=== PATIENT | male | born 1945 | race African-American/Black ===

== ENCOUNTER 2018-06-29 22:33 | Inpatient (IN) ==
[2018-06-29] MEDS ORDERED: NITROGLYCERIN 2% OINT 1 INCH/GM PACK TOP STA (22:37)
[2018-06-29] MEDS ORDERED: MORPHINE 4 MG/1 ML VIAL IV STA ×2 (22:39→22:46)
[2018-06-29] MEDS ORDERED: NITROGLYCERIN DRIP 50 MG/250 ML BOTTLE IV ONE (22:46)
[2018-06-29] MEDS ORDERED: ONDANSETRON 4 MG/2 ML VIAL IV STA (22:46)
[2018-06-29] MEDS ORDERED: NITROGLYCERIN DRIP 50 MG/250 ML BOTTLE IV PRN (22:47)
[2018-06-29] MEDS ORDERED: TICAGRELOR 90 MG TABLET PO STA (22:47)
[2018-06-29] MEDS ORDERED: ASPIRIN 325 MG TABLET PO STA (22:47)
[2018-06-29] MEDS ORDERED: SODIUM BICARBONATE 2.4 MEQ/5 ML VIAL ONE (22:48)
[2018-06-29] MEDS ORDERED: LIDOCAINE 1% 20 ML VIAL ONE (22:48)
[2018-06-29] MEDS ORDERED: HEPARIN/NACL 0.9% 2 UNITS/ML 1,000 ML IV ONE (22:48)
[2018-06-29] MEDS ORDERED: fentaNYL 100 MCG/2 ML VIAL ONE (22:53)
[2018-06-29] MEDS ORDERED: MIDAZOLAM 2 MG/2 ML VIAL ONE (22:53)
[2018-06-29 23:01] LABS: Basophils % 0.6 % (0.0-0.8); Eosinophils # 0.1 10*3/uL (0.0-0.87); Eosinophils % 1.6 % (0.00-10.9); Hematocrit 37.9 VOL% (42.0-52.0); Immature Granulocytes % 0.3 %; Immature Granulocytes Absolute 0.02 #; Lymphocytes # 1.2 10*3/uL (1.4-4.0); Lymphocytes % 19.1 % (21.2-54.2); Mean Corpuscular HGB Conc 31.7 GM/DL (32-36); Mean Corpuscular Hemoglobin 30 PG (27-34); Mean Corpuscular Volume 94.8 FL (87-102); Monocytes # 0.3 10*3/uL (0.11-0.8); Monocytes % 5.4 % (1.7-12.7); Neutrophils # 4.6 10*3/uL (1.4-7.4); Platelet Count 226 T/CUMM (130-400); Red Cell Distribution Width 13.8 % (9.3-17.3); White Blood Count 6.3 T/CUMM (4-12)
[2018-06-29] MEDS ORDERED: HEPARIN 5,000 UNIT/1 ML VIAL ONE (23:01)
[2018-06-29] MEDS ORDERED: EPTIFIBATIDE 20,000 MCG/10 ML VIAL ONE (23:04)
[2018-06-29 23:24] LABS: PT Patient Result 11.3 SECS; Partial Thromboplastin Time 25.8 SECS (0-40)
[2018-06-29 23:27] LABS: Alanine Aminotransferase 26 U/L (16-61); Albumin 3.3 G/DL (3.4-5.0); Alkaline Phosphatase 110 U/L (45-117); Aspartate Amino Transferase 20 U/L (0-37); Bilirubin,Total < 0.39 MG/DL (0.2-1.0); Blood Urea Nitrogen 15 MG/DL (7-18); Calcium 8.4 MG/DL (8.5-10.1); Glucose 209 MG/DL (74-106); Potassium 3.4 MMOL/L (3.5-5.1); Sodium 143 MMOL/L (136-145); Total Protein 6.1 G/DL (6.4-8.3)
[2018-06-29] MEDS ORDERED: PHENYLEPHRINE 50 MG/5 ML VIAL ONE (23:33)
[2018-06-29] MEDS: PHENYLEPHRINE DRIP 40 MG/250 ML PREMIX IV PRN (23:41)
[2018-06-29] MEDS ORDERED: EPTIFIBATIDE 75 MG/100 ML BOTTLE IV SCH (23:46)
[2018-06-30] MEDS ORDERED: ACETAMINOPHEN 325 MG TABLET PO PRN (00:22)
[2018-06-30] MEDS: PHENYLEPHRINE DRIP 40 MG/250 ML PREMIX IV PRN ×4 (04:50→21:16)
[2018-06-30] MEDS ORDERED: NITROGLYCERIN 2% OINT 1 INCH/GM PACK TOP ONE (05:07)
[2018-06-30] MEDS ORDERED: ASPIRIN 325 MG TABLET ONE (05:07)
[2018-06-30] MEDS ORDERED: TICAGRELOR 90 MG TABLET ONE (05:07)
[2018-06-30] MEDS ORDERED: MORPHINE 4 MG/1 ML VIAL ONE (05:07)
[2018-06-30 07:15] LABS: Basophils % 0.3 % (0.0-0.8); Eosinophils % 0.1 % (0.00-10.9); Hematocrit 44.9 VOL% (42.0-52.0); Hemoglobin 13.8 GM/DL (14.0-18.0); Immature Granulocytes % 0.9 %; Lymphocytes # 1.1 10*3/uL (1.4-4.0); Lymphocytes % 10.6 % (21.2-54.2); Mean Corpuscular HGB Conc 30.7 GM/DL (32-36); Mean Corpuscular Hemoglobin 30 PG (27-34); Mean Corpuscular Volume 96.8 FL (87-102); Mean Platelet Volume 10.6 FL (9.6-12.0); Monocytes # 0.9 10*3/uL (0.11-0.8); Monocytes % 8.6 % (1.7-12.7); Neutrophils # 8.6 10*3/uL (1.4-7.4); Neutrophils % 79.5 % (38.7-73.9); Platelet Count 193 T/CUMM (130-400); Red Blood Count 4.64 MC/CUMM (3.8-5.5); Red Cell Distribution Width 14.2 % (9.3-17.3); White Blood Count 10.8 T/CUMM (4-12)
[2018-06-30 07:36] LABS: Calcium 8.1 MG/DL (8.5-10.1); Potassium 4.3 MMOL/L (3.5-5.1); Risk Ratio 4.1; VLDL CHOLESTEROL 18.8 MG/DL
[2018-06-30 07:40] LABS: Hypochromasia 1+; Microcytosis Slight; Ovalocytes Slight
[2018-06-30 07:50] LABS: CKMB % 10.8 %
[2018-06-30 07:53] LABS: Troponin I > 200.000 NG/ML (0.00-0.045)
[2018-06-30 09:12] LABS: Apearance,Urine CLEAR (Clear); Bilirubin,Urine Negative (Negative); Blood, Urine Negative (Negative); Glucose,Urine (UA) Negative (Negative); Ketones,Urine Negative (Negative); Nitrite,Urine Negative (Negative); Protein,Urine 30 MG/DL; RBC,Urine 7 /HPF (0-4); Squamous Epithelial Cell,Urine Occasional /HPF (0-10); Urine Color Yellow (Yellow); Urine Specific Gravity > 1.060 (1.001-1.035); Urine Urobilinogen < 2.0 EU/DL (0.2-1.0); WBC,Urine 1 /HPF (0-6)
[2018-06-30] MEDS ORDERED: ALBUTEROL/IPRATROPIUM 3 ML NEB RESP TX ONE (09:25)
[2018-06-30 09:26] LABS: Barbiturates Screen,Urine Negative (Negative); Benzodiazepines Screen,Urine Negative (Negative); Cannabinoid Screen,Urine Negative (Negative); Opiate Screen,Urine Positive (Negative); Phencyclidine Screen,Urine Negative (Negative)
[2018-06-30] MEDS ORDERED: FUROSEMIDE 40 MG/4 ML VIAL IV ONE ×4 (09:35→23:28)
[2018-06-30 09:45] LABS: ABG Base Excess -1.8 MMOL/L (-2.5-2.5); ABG HCO3 22.5 MMOL/L (20-26); ABG Oxygen Saturation 82.2 % (95-100); ABG PCO2 43.8 MM HG (35-48); ABG PH 7.347 (7.35-7.45); ABG PO2 52.1 MM HG (80-95); ABG TCO2 20.9 MMOL/L (23-27)
[2018-06-30] MEDS: TICAGRELOR 90 MG TABLET PO SCH ×2 (09:54→21:15)
[2018-06-30] MEDS: ASPIRIN EC 81 MG TABLET PO SCH (09:54)
[2018-06-30] MEDS ORDERED: ENOXAPARIN 80 MG/0.8 ML SYRINGE SUBCUT ONE (10:07)
[2018-06-30 10:24] LABS: CKMB % 10.3 %
[2018-06-30 10:28] LABS: Troponin I > 200.000 NG/ML (0.00-0.045)
[2018-06-30] MEDS: ONDANSETRON 4 MG/2 ML VIAL IV PRN ×2 (15:00→22:53)
[2018-06-30] MEDS ORDERED: ALUM/MAG/SIMETH/LIDO VISC 1:1 30 ML BOTTLE PO ONE (15:59)
[2018-06-30] MEDS ORDERED: ZALEPLON 5 MG CAPSULE PO PRN (16:12)
[2018-06-30 20:48] LABS: CKMB % 8.4 %
[2018-06-30 20:51] LABS: Troponin I > 200.000 NG/ML (0.00-0.045)
[2018-06-30] MEDS: ROSUVASTATIN 20 MG TABLET PO SCH (21:15)
[2018-06-30] MEDS: PANTOPRAZOLE 40 MG VIAL IV SCH (21:15)
[2018-06-30] MEDS ORDERED: CLORAZEPATE 3.75 MG TABLET PO PRN (23:27)
[2018-07-01] MEDS ORDERED: FUROSEMIDE 40 MG/4 ML VIAL IV ONE (00:13)
[2018-07-01 00:39] LABS: Allen Test Positive
[2018-07-01 00:40] LABS: ABG Base Excess 3.8 MMOL/L (-2.5-2.5); ABG HCO3 27.4 MMOL/L (20-26); ABG Oxygen Saturation 84.3 % (95-100); ABG PH 7.499 (7.35-7.45); ABG PO2 48.8 MM HG (80-95)
[2018-07-01] MEDS: SODIUM CHLORIDE 0.9% 1,000 ML IV SCH ×2 (02:25→02:26)
[2018-07-01 03:58] LABS: ABG Base Excess 6.5 MMOL/L (-2.5-2.5); ABG HCO3 30.2 MMOL/L (20-26); ABG Oxygen Saturation 90.9 % (95-100); ABG PCO2 35.2 MM HG (35-48); ABG PH 7.527 (7.35-7.45); ABG PO2 59.8 MM HG (80-95); ABG TCO2 24.8 MMOL/L (23-27); Allen Test Positive; Pt O2 Delivery Device Other
[2018-07-01 06:01] LABS: Basophils % 0.1 % (0.0-0.8); Hematocrit 43.9 VOL% (42.0-52.0); Immature Granulocytes % 0.6 %; Immature Granulocytes Absolute 0.05 #; Lymphocytes # 0.7 10*3/uL (1.4-4.0); Lymphocytes % 8.1 % (21.2-54.2); Mean Corpuscular HGB Conc 31.9 GM/DL (32-36); Mean Corpuscular Hemoglobin 30 PG (27-34); Mean Corpuscular Volume 93.6 FL (87-102); Mean Platelet Volume 10.7 FL (9.6-12.0); Monocytes # 0.4 10*3/uL (0.11-0.8); Monocytes % 4.8 % (1.7-12.7); Neutrophils % 86.4 % (38.7-73.9); Platelet Count 137 T/CUMM (130-400); Red Blood Count 4.69 MC/CUMM (3.8-5.5); Red Cell Distribution Width 14.3 % (9.3-17.3); White Blood Count 8.1 T/CUMM (4-12)
[2018-07-01 06:14] LABS: Calcium 8.8 MG/DL (8.5-10.1); Osmolality,Calculated 282.4 MOS/KG (273-304); Potassium 3.9 MMOL/L (3.5-5.1)
[2018-07-01] MEDS: FUROSEMIDE 40 MG/4 ML VIAL IV SCH ×2 (09:13→16:20)
[2018-07-01] MEDS: TICAGRELOR 90 MG TABLET PO SCH ×2 (09:13→20:54)
[2018-07-01] MEDS: ASPIRIN EC 81 MG TABLET PO SCH (09:13)
[2018-07-01] MEDS: PANTOPRAZOLE 40 MG VIAL IV SCH (09:13)
[2018-07-01] MEDS: CARVEDILOL 3.125 MG TABLET PO SCH ×2 (11:10→20:54)
[2018-07-01] MEDS: ROSUVASTATIN 20 MG TABLET PO SCH (20:54)
[2018-07-02 03:34] LABS: Basophils % 0.2 % (0.0-0.8); Hematocrit 42.6 VOL% (42.0-52.0); Hemoglobin 13.9 GM/DL (14.0-18.0); Immature Granulocytes % 0.4 %; Immature Granulocytes Absolute 0.03 #; Lymphocytes # 0.9 10*3/uL (1.4-4.0); Lymphocytes % 10.3 % (21.2-54.2); Mean Corpuscular HGB Conc 32.6 GM/DL (32-36); Mean Corpuscular Hemoglobin 30 PG (27-34); Mean Corpuscular Volume 91.4 FL (87-102); Mean Platelet Volume 10.9 FL (9.6-12.0); Monocytes # 0.5 10*3/uL (0.11-0.8); Monocytes % 5.9 % (1.7-12.7); Neutrophils # 6.9 10*3/uL (1.4-7.4); Neutrophils % 83.2 % (38.7-73.9); Platelet Count 135 T/CUMM (130-400); Red Blood Count 4.66 MC/CUMM (3.8-5.5); Red Cell Distribution Width 14.2 % (9.3-17.3); White Blood Count 8.3 T/CUMM (4-12)
[2018-07-02 04:04] LABS: Calcium 8.5 MG/DL (8.5-10.1); Osmolality,Calculated 276.8 MOS/KG (273-304); Potassium 3.4 MMOL/L (3.5-5.1)
[2018-07-02] MEDS: FUROSEMIDE 40 MG/4 ML VIAL IV SCH ×2 (09:41→16:57)
[2018-07-02] MEDS: CARVEDILOL 3.125 MG TABLET PO SCH (09:41)
[2018-07-02] MEDS: POTASSIUM CHLORIDE RIDER 10 MEQ in PREMIX 1 EACH IV PRN ×2 (09:41→11:11)
[2018-07-02] MEDS: ASPIRIN EC 81 MG TABLET PO SCH (09:41)
[2018-07-02] MEDS: TICAGRELOR 90 MG TABLET PO SCH ×2 (09:41→21:01)
[2018-07-02] MEDS: PANTOPRAZOLE 40 MG TABLET PO SCH (09:41)
[2018-07-02] MEDS: CARVEDILOL 6.25 MG TABLET PO SCH ×2 (11:22→21:01)
[2018-07-02] MEDS: ROSUVASTATIN 20 MG TABLET PO SCH (21:01)
[2018-07-03 03:52] LABS: Basophils % 0.4 % (0.0-0.8); Eosinophils % 0.3 % (0.00-10.9); Hematocrit 41.4 VOL% (42.0-52.0); Hemoglobin 13.4 GM/DL (14.0-18.0); Immature Granulocytes % 0.6 %; Immature Granulocytes Absolute 0.04 #; Lymphocytes # 0.8 10*3/uL (1.4-4.0); Lymphocytes % 12.3 % (21.2-54.2); Mean Corpuscular HGB Conc 32.4 GM/DL (32-36); Mean Corpuscular Hemoglobin 30 PG (27-34); Mean Platelet Volume 11.2 FL (9.6-12.0); Monocytes # 0.5 10*3/uL (0.11-0.8); Neutrophils # 5.3 10*3/uL (1.4-7.4); Neutrophils % 78.4 % (38.7-73.9); Platelet Count 151 T/CUMM (130-400); White Blood Count 6.7 T/CUMM (4-12)
[2018-07-03 04:13] LABS: Calcium 8.2 MG/DL (8.5-10.1); Osmolality,Calculated 280.5 MOS/KG (273-304); Potassium 3.7 MMOL/L (3.5-5.1)
[2018-07-03 04:15] LABS: Calcium 8.7 MG/DL (8.5-10.1); Osmolality,Calculated 278.7 MOS/KG (273-304); Potassium 3.4 MMOL/L (3.5-5.1)
[2018-07-03] MEDS: POTASSIUM CHLORIDE RIDER 10 MEQ in PREMIX 1 EACH IV PRN ×2 (05:31→06:41)
[2018-07-03 08:10] VITALS: BP 116/56
[2018-07-03] MEDS: FUROSEMIDE 40 MG/4 ML VIAL IV SCH (08:19)
[2018-07-03] MEDS: TICAGRELOR 90 MG TABLET PO SCH (08:20)
[2018-07-03] MEDS: CARVEDILOL 6.25 MG TABLET PO SCH (08:20)
[2018-07-03] MEDS: PANTOPRAZOLE 40 MG TABLET PO SCH (08:20)
[2018-07-03] MEDS: ASPIRIN EC 81 MG TABLET PO SCH (08:20)
[2018-07-03] MEDS ORDERED: POTASSIUM CHLORIDE 20 MEQ TABLET PO ONE (09:28)
== END 2018-07-03 12:30 | disposition home or self-care (01) | DRG 246 ==
LOC: EDUNIT# → EDBD → N.ED 22:33 → N.EDINP 22:52 → N.CC 06-30 02:25 → N.TELES 07-01 16:40
PROVIDERS: ADMIT Internal Medicine Cardiovascular Disease; ATTEND Internal Medicine Cardiovascular Disease

== ENCOUNTER 2018-07-13 13:15 | Inpatient (IN) ==
[2018-07-13] MEDS ORDERED: ALBUTEROL/IPRATROPIUM 3 ML NEB RESP TX STA (16:19)
[2018-07-13] MEDS ORDERED: ONDANSETRON 4 MG/2 ML VIAL IV STA (16:19)
[2018-07-13] MEDS ORDERED: FUROSEMIDE 100 MG/10 ML VIAL IV STA (16:19)
[2018-07-13 16:50] LABS: Basophils % 0.7 % (0.0-0.8); Eosinophils % 0.7 % (0.00-10.9); Hematocrit 39.1 VOL% (42.0-52.0); Hemoglobin 12.6 GM/DL (14.0-18.0); Immature Granulocytes % 0.3 %; Immature Granulocytes Absolute 0.02 #; Lymphocytes # 1.1 10*3/uL (1.4-4.0); Lymphocytes % 18.7 % (21.2-54.2); Mean Corpuscular HGB Conc 32.2 GM/DL (32-36); Mean Corpuscular Hemoglobin 30 PG (27-34); Mean Corpuscular Volume 93.8 FL (87-102); Mean Platelet Volume 10.6 FL (9.6-12.0); Monocytes # 0.5 10*3/uL (0.11-0.8); Monocytes % 8.3 % (1.7-12.7); Neutrophils # 4.3 10*3/uL (1.4-7.4); Neutrophils % 71.3 % (38.7-73.9); Platelet Count 341 T/CUMM (130-400); Red Blood Count 4.17 MC/CUMM (3.8-5.5); Red Cell Distribution Width 14.6 % (9.3-17.3)
[2018-07-13 16:54] LABS: Apearance,Urine CLEAR (Clear); Bilirubin,Urine Negative (Negative); Blood, Urine Negative (Negative); Glucose,Urine (UA) Negative (Negative); Hyaline Casts,Urine 8 /LPF (0-3); Ketones,Urine Negative (Negative); Mucus,Urine Few /LPF (Occasional); Nitrite,Urine Negative (Negative); Protein,Urine 30 MG/DL; RBC,Urine 1 /HPF (0-4); Squamous Epithelial Cell,Urine Occasional /HPF (0-10); Urine Color Amber (Yellow); WBC,Urine 1 /HPF (0-6)
[2018-07-13 17:14] LABS: INR 1.1; PT Patient Result 11.5 SECS; Partial Thromboplastin Time 26.8 SECS (0-40)
[2018-07-13 17:17] LABS: Alanine Aminotransferase 70 U/L (16-61); Albumin 3.2 G/DL (3.4-5.0); Alkaline Phosphatase 86 U/L (45-117); Aspartate Amino Transferase 22 U/L (0-37); Blood Urea Nitrogen 22 MG/DL (7-18); Glucose 102 MG/DL (74-106); Osmolality,Calculated 283.3 MOS/KG (273-304); Potassium 4.6 MMOL/L (3.5-5.1); Sodium 141 MMOL/L (136-145)
[2018-07-13] MEDS ORDERED: ENOXAPARIN 80 MG/0.8 ML SYRINGE SUBCUT STA (17:28)
[2018-07-13] MEDS ORDERED: ONDANSETRON 4 MG/2 ML VIAL IV PRN (17:30)
[2018-07-13] MEDS: TICAGRELOR 90 MG TABLET PO SCH (23:19)
[2018-07-13] MEDS: ROSUVASTATIN 20 MG TABLET PO SCH (23:19)
[2018-07-13] MEDS: CARVEDILOL 6.25 MG TABLET PO SCH (23:19)
[2018-07-14] MEDS ORDERED: ZALEPLON 5 MG CAPSULE PO ONE (00:35)
[2018-07-14 11:30] LABS: Osmolality,Calculated 285.4 MOS/KG (273-304); Potassium 4.5 MMOL/L (3.5-5.1)
[2018-07-14] MEDS: ASPIRIN EC 81 MG TABLET PO SCH (11:50)
[2018-07-14] MEDS: CARVEDILOL 6.25 MG TABLET PO SCH ×2 (11:51→21:52)
[2018-07-14] MEDS: TICAGRELOR 90 MG TABLET PO SCH ×2 (11:51→21:52)
[2018-07-14] MEDS: PANTOPRAZOLE 40 MG TABLET PO SCH (11:51)
[2018-07-14] MEDS: FUROSEMIDE 40 MG/4 ML VIAL IV SCH ×2 (11:52→16:15)
[2018-07-14] MEDS: ROSUVASTATIN 20 MG TABLET PO SCH (21:52)
[2018-07-15 05:15] LABS: Basophils % 0.4 % (0.0-0.8); Eosinophils % 0.5 % (0.00-10.9); Hematocrit 37.8 VOL% (42.0-52.0); Hemoglobin 12.1 GM/DL (14.0-18.0); Immature Granulocytes % 0.3 %; Immature Granulocytes Absolute 0.02 #; Lymphocytes # 1.2 10*3/uL (1.4-4.0); Lymphocytes % 15.2 % (21.2-54.2); Mean Corpuscular Hemoglobin 30 PG (27-34); Mean Corpuscular Volume 93.1 FL (87-102); Mean Platelet Volume 11.2 FL (9.6-12.0); Monocytes # 0.7 10*3/uL (0.11-0.8); Monocytes % 8.8 % (1.7-12.7); Neutrophils # 5.7 10*3/uL (1.4-7.4); Neutrophils % 74.8 % (38.7-73.9); Platelet Count 370 T/CUMM (130-400); Red Blood Count 4.06 MC/CUMM (3.8-5.5); Red Cell Distribution Width 14.5 % (9.3-17.3); White Blood Count 7.6 T/CUMM (4-12)
[2018-07-15 05:38] LABS: Osmolality,Calculated 282.5 MOS/KG (273-304); Potassium 4.3 MMOL/L (3.5-5.1)
[2018-07-15] MEDS: PANTOPRAZOLE 40 MG TABLET PO SCH (08:07)
[2018-07-15] MEDS: TICAGRELOR 90 MG TABLET PO SCH ×2 (08:07→21:42)
[2018-07-15] MEDS: ASPIRIN EC 81 MG TABLET PO SCH (08:07)
[2018-07-15] MEDS: CARVEDILOL 6.25 MG TABLET PO SCH ×2 (08:07→21:42)
[2018-07-15] MEDS: FUROSEMIDE 40 MG/4 ML VIAL IV SCH ×2 (08:26→16:05)
[2018-07-15] MEDS: ROSUVASTATIN 20 MG TABLET PO SCH (21:42)
[2018-07-16 04:06] LABS: Basophils % 0.4 % (0.0-0.8); Eosinophils % 0.5 % (0.00-10.9); Hematocrit 39.4 VOL% (42.0-52.0); Hemoglobin 12.7 GM/DL (14.0-18.0); Immature Granulocytes % 0.4 %; Immature Granulocytes Absolute 0.03 #; Lymphocytes # 0.9 10*3/uL (1.4-4.0); Lymphocytes % 11.5 % (21.2-54.2); Mean Corpuscular HGB Conc 32.2 GM/DL (32-36); Mean Corpuscular Hemoglobin 30 PG (27-34); Mean Corpuscular Volume 91.6 FL (87-102); Mean Platelet Volume 11.4 FL (9.6-12.0); Monocytes # 0.8 10*3/uL (0.11-0.8); Monocytes % 10.2 % (1.7-12.7); Neutrophils # 5.9 10*3/uL (1.4-7.4); Platelet Count 384 T/CUMM (130-400); Red Cell Distribution Width 14.5 % (9.3-17.3); White Blood Count 7.6 T/CUMM (4-12)
[2018-07-16 04:30] LABS: Calcium 8.7 MG/DL (8.5-10.1); Osmolality,Calculated 282.5 MOS/KG (273-304); Potassium 3.6 MMOL/L (3.5-5.1)
[2018-07-16 08:52] VITALS: BP 107/73
[2018-07-16] MEDS: TICAGRELOR 90 MG TABLET PO SCH (08:54)
[2018-07-16] MEDS: CARVEDILOL 6.25 MG TABLET PO SCH (08:55)
[2018-07-16] MEDS: FUROSEMIDE 40 MG/4 ML VIAL IV SCH (08:55)
[2018-07-16] MEDS: ASPIRIN EC 81 MG TABLET PO SCH (08:55)
[2018-07-16] MEDS: PANTOPRAZOLE 40 MG TABLET PO SCH (08:55)
[2018-07-16] MEDS ORDERED: POTASSIUM CHLORIDE 20 MEQ TABLET PO SCH (10:30)
[2018-07-16] MEDS ORDERED: FUROSEMIDE 40 MG TABLET PO SCH (16:00)
== END 2018-07-16 12:00 | disposition home health service (06) | DRG 280 ==
LOC: N.ED 13:15 → N.EDINP 17:29 → N.TELES 19:39
PROVIDERS: ADMIT Internal Medicine Cardiovascular Disease; ATTEND Internal Medicine Cardiovascular Disease

== ENCOUNTER 2018-08-28 00:06 | Inpatient (IN) ==
[2018-08-28] MEDS ORDERED: ASPIRIN 325 MG TABLET PO STA (00:35)
[2018-08-28] MEDS ORDERED: ONDANSETRON 4 MG/2 ML VIAL IV STA (00:35)
[2018-08-28] MEDS ORDERED: FUROSEMIDE 40 MG/4 ML VIAL IV STA (00:35)
[2018-08-28] MEDS ORDERED: NITROGLYCERIN 2% OINT 1 INCH/GM PACK TOP STA (00:35)
[2018-08-28] MEDS ORDERED: MORPHINE 4 MG/1 ML VIAL IV STA (00:35)
[2018-08-28] MEDS ORDERED: PHENYLEPHRINE DRIP 40 MG/250 ML PREMIX IV PRN (01:16)
[2018-08-28 01:23] LABS: Basophils % 0.2 % (0.0-0.8); Eosinophils % 0.3 % (0.00-10.9); Hematocrit 42.6 VOL% (42.0-52.0); Hemoglobin 13.4 GM/DL (14.0-18.0); Immature Granulocytes % 1.7 %; Immature Granulocytes Absolute 0.17 #; Lymphocytes # 1.6 10*3/uL (1.4-4.0); Lymphocytes % 16.2 % (21.2-54.2); Mean Corpuscular HGB Conc 31.5 GM/DL (32-36); Mean Corpuscular Hemoglobin 31 PG (27-34); Mean Corpuscular Volume 96.8 FL (87-102); Mean Platelet Volume 11.8 FL (9.6-12.0); Monocytes # 0.7 10*3/uL (0.11-0.8); Monocytes % 6.7 % (1.7-12.7); NRBC # 0.03 10*3/uL; Neutrophils # 7.4 10*3/uL (1.4-7.4); Neutrophils % 74.9 % (38.7-73.9); Platelet Count 162 T/CUMM (130-400); Red Cell Distribution Width 17.2 % (9.3-17.3); White Blood Count 9.9 T/CUMM (4-12)
[2018-08-28 01:34] LABS: INR 1.2; PT Patient Result 13.5 SECS
[2018-08-28 01:42] LABS: Albumin 3.3 G/DL (3.4-5.0); Bilirubin,Total 1.2 MG/DL (0.2-1.0); Calcium 9.1 MG/DL (8.5-10.1); Osmolality,Calculated 291.5 MOS/KG (273-304); Potassium 4.3 MMOL/L (3.5-5.1); Total Protein 6.2 G/DL (6.4-8.3)
[2018-08-28 01:45] LABS: ABG Base Excess -4.3 MMOL/L (-2.5-2.5); ABG HCO3 20.9 MMOL/L (20-26); ABG PCO2 22.4 MM HG (35-48); ABG PH 7.492 (7.35-7.45); ABG TCO2 14.8 MMOL/L (23-27)
[2018-08-28] MEDS ORDERED: ONDANSETRON 4 MG/2 ML VIAL IV PRN (02:24)
[2018-08-28] MEDS ORDERED: NITROGLYCERIN SL 0.4 MG TABLET SL PRN (02:30)
[2018-08-28] MEDS ORDERED: DOPamine 800 MG/250 ML PREMIX IV PRN (02:50)
[2018-08-28 03:02] LABS: Thyroid Stimulating Hormone 8.79 uIU/ml (0.358-3.74); VLDL CHOLESTEROL 26.2 MG/DL
[2018-08-28] MEDS: DOBUTamine 500 MG/250 ML PREMIX IV PRN ×2 (04:20→19:20)
[2018-08-28] MEDS ORDERED: INFLUENZA VIRUS VACCINE 0.5 ML SYRINGE IM ONE (05:03)
[2018-08-28 05:24] LABS: Apearance,Urine Slightly Hazy (Clear); Bacteria,Urine Occasional /HPF (Few); Bilirubin,Urine Negative (Negative); Blood, Urine Small mg/dL (Negative); Glucose,Urine (UA) Negative (Negative); Hyaline Casts,Urine 5 /LPF (0-3); Ketones,Urine Negative (Negative); Mucus,Urine Occasional /LPF (Occasional); Nitrite,Urine Negative (Negative); Protein,Urine Negative; RBC,Urine 2 /HPF (0-4); Squamous Epithelial Cell,Urine Occasional /HPF (0-10); Urine Color Yellow (Yellow); Urine Specific Gravity 1.008 (1.001-1.035); WBC,Urine 1 /HPF (0-6)
[2018-08-28 05:27] LABS: Barbiturates Screen,Urine Negative (Negative); Benzodiazepines Screen,Urine Negative (Negative); Cannabinoid Screen,Urine Negative (Negative); Opiate Screen,Urine Positive (Negative); Phencyclidine Screen,Urine Negative (Negative)
[2018-08-28 06:55] LABS: Eosinophils % 0.1 % (0.00-10.9); Hemoglobin 12.2 GM/DL (14.0-18.0); Lymphocytes # 0.7 10*3/uL (1.4-4.0); Lymphocytes % 7.2 % (21.2-54.2); Mean Corpuscular HGB Conc 32.1 GM/DL (32-36); Mean Corpuscular Hemoglobin 30 PG (27-34); Mean Corpuscular Volume 92.9 FL (87-102); Monocytes # 0.7 10*3/uL (0.11-0.8); Monocytes % 6.8 % (1.7-12.7); Neutrophils # 8.6 10*3/uL (1.4-7.4); Neutrophils % 84.9 % (38.7-73.9); Platelet Count 145 T/CUMM (130-400); Red Blood Count 4.09 MC/CUMM (3.8-5.5); Red Cell Distribution Width 16.7 % (9.3-17.3); White Blood Count 10.1 T/CUMM (4-12)
[2018-08-28] MEDS ORDERED: CARVEDILOL 6.25 MG TABLET PO SCH (09:00)
[2018-08-28] MEDS: TICAGRELOR 90 MG TABLET PO SCH ×2 (10:16→20:17)
[2018-08-28] MEDS: ASPIRIN EC 81 MG TABLET PO SCH (10:16)
[2018-08-28] MEDS: PANTOPRAZOLE 40 MG TABLET PO SCH (10:16)
[2018-08-28] MEDS: ENOXAPARIN 60 MG/0.6 ML SYRINGE SUBCUT SCH (11:43)
[2018-08-28] MEDS: ROSUVASTATIN 20 MG TABLET PO SCH (20:17)
[2018-08-29] MEDS: DOBUTamine 500 MG/250 ML PREMIX IV PRN ×2 (03:58→13:23)
[2018-08-29 05:18] LABS: Calcium 8.3 MG/DL (8.5-10.1); Osmolality,Calculated 281.8 MOS/KG (273-304); Potassium 3.3 MMOL/L (3.5-5.1)
[2018-08-29] MEDS: ASPIRIN EC 81 MG TABLET PO SCH (08:24)
[2018-08-29] MEDS: PANTOPRAZOLE 40 MG TABLET PO SCH (08:24)
[2018-08-29] MEDS: TICAGRELOR 90 MG TABLET PO SCH ×2 (08:24→20:21)
[2018-08-29] MEDS: POTASSIUM CHLORIDE 20 MEQ TABLET PO SCH ×3 (09:05→18:23)
[2018-08-29] MEDS: ENOXAPARIN 60 MG/0.6 ML SYRINGE SUBCUT SCH (10:24)
[2018-08-29] MEDS: ROSUVASTATIN 20 MG TABLET PO SCH (20:21)
[2018-08-30 04:55] LABS: Eosinophils % 0.3 % (0.00-10.9); Hematocrit 34.8 VOL% (42.0-52.0); Hemoglobin 11.4 GM/DL (14.0-18.0); Immature Granulocytes % 0.5 %; Immature Granulocytes Absolute 0.04 #; Lymphocytes # 0.8 10*3/uL (1.4-4.0); Lymphocytes % 10.2 % (21.2-54.2); Mean Corpuscular HGB Conc 32.8 GM/DL (32-36); Mean Corpuscular Hemoglobin 31 PG (27-34); Mean Corpuscular Volume 94.3 FL (87-102); Mean Platelet Volume 11.9 FL (9.6-12.0); Monocytes # 0.6 10*3/uL (0.11-0.8); Monocytes % 8.2 % (1.7-12.7); Neutrophils % 80.8 % (38.7-73.9); Platelet Count 139 T/CUMM (130-400); Red Blood Count 3.69 MC/CUMM (3.8-5.5); Red Cell Distribution Width 16.9 % (9.3-17.3); White Blood Count 7.4 T/CUMM (4-12)
[2018-08-30 05:28] LABS: Calcium 8.3 MG/DL (8.5-10.1); Osmolality,Calculated 282.4 MOS/KG (273-304); Potassium 3.9 MMOL/L (3.5-5.1); Troponin I 0.627 NG/ML (0.00-0.045)
[2018-08-30] MEDS: DOBUTamine 500 MG/250 ML PREMIX IV PRN (07:05)
[2018-08-30] MEDS: PANTOPRAZOLE 40 MG TABLET PO SCH (09:50)
[2018-08-30] MEDS: ASPIRIN EC 81 MG TABLET PO SCH (09:50)
[2018-08-30] MEDS: TICAGRELOR 90 MG TABLET PO SCH ×2 (09:50→21:25)
[2018-08-30] MEDS: ENOXAPARIN 60 MG/0.6 ML SYRINGE SUBCUT SCH (10:00)
[2018-08-30 14:10] LABS: Hepatitis A Ab IgM Quant 0.21 Index; Hepatitis A Ab IgM Result Negative (Negative); Hepatitis B Core IgM Quant 0.14 Index; Hepatitis B Core IgM Result Negative (Negative); Hepatitis B Surface Ag Quant < 0.10 Index; Hepatitis B Surface Ag Result Negative (Negative); Hepatitis C Virus Ab Quant 0.05 Index; Hepatitis C Virus Ab Result Negative (Negative)
[2018-08-30] MEDS ORDERED: ENOXAPARIN 30 MG/0.3 ML SYRINGE SUBCUT SCH (15:00)
[2018-08-30] MEDS: ZINC OXIDE PASTE 113 GM TUBE TOP SCH ×2 (21:17→21:25)
[2018-08-31] MEDS: DOBUTamine 500 MG/250 ML PREMIX IV PRN (02:39)
[2018-08-31 05:12] LABS: Basophils % 0.1 % (0.0-0.8); Eosinophils % 0.5 % (0.00-10.9); Hematocrit 39.2 VOL% (42.0-52.0); Hemoglobin 12.4 GM/DL (14.0-18.0); Immature Granulocytes % 0.5 %; Immature Granulocytes Absolute 0.04 #; Lymphocytes # 0.7 10*3/uL (1.4-4.0); Lymphocytes % 8.6 % (21.2-54.2); Mean Corpuscular HGB Conc 31.6 GM/DL (32-36); Mean Corpuscular Hemoglobin 30 PG (27-34); Mean Corpuscular Volume 96.1 FL (87-102); Mean Platelet Volume 11.3 FL (9.6-12.0); Monocytes # 0.7 10*3/uL (0.11-0.8); Monocytes % 8.1 % (1.7-12.7); Neutrophils # 6.9 10*3/uL (1.4-7.4); Neutrophils % 82.2 % (38.7-73.9); Platelet Count 160 T/CUMM (130-400); Red Blood Count 4.08 MC/CUMM (3.8-5.5); Red Cell Distribution Width 16.8 % (9.3-17.3); White Blood Count 8.4 T/CUMM (4-12)
[2018-08-31 05:27] LABS: Calcium 8.6 MG/DL (8.5-10.1); Osmolality,Calculated 278.5 MOS/KG (273-304)
[2018-08-31] MEDS: PANTOPRAZOLE 40 MG TABLET PO SCH (08:08)
[2018-08-31] MEDS: ASPIRIN EC 81 MG TABLET PO SCH (08:08)
[2018-08-31] MEDS: ENOXAPARIN 30 MG/0.3 ML SYRINGE SUBCUT SCH (08:09)
[2018-08-31] MEDS: TICAGRELOR 90 MG TABLET PO SCH ×2 (08:09→22:22)
[2018-08-31] MEDS: ZINC OXIDE PASTE 113 GM TUBE TOP SCH ×2 (08:09→22:22)
[2018-08-31] MEDS ORDERED: PIPERACILLIN/TAZOBACTAM 3,375 MG in SODIUM CHLORIDE 0.9% 100 ML IV SCH (11:30)
[2018-09-01] MEDS ORDERED: MELATONIN 3 MG TABLET PO PRN (00:54)
[2018-09-01 04:19] LABS: Basophils % 0.3 % (0.0-0.8); Eosinophils # 0.1 10*3/uL (0.0-0.87); Eosinophils % 0.7 % (0.00-10.9); Hemoglobin 12.8 GM/DL (14.0-18.0); Immature Granulocytes % 0.3 %; Immature Granulocytes Absolute 0.03 #; Lymphocytes % 10.8 % (21.2-54.2); Mean Corpuscular HGB Conc 31.2 GM/DL (32-36); Mean Corpuscular Hemoglobin 30 PG (27-34); Mean Corpuscular Volume 95.8 FL (87-102); Mean Platelet Volume 11.3 FL (9.6-12.0); Monocytes # 0.8 10*3/uL (0.11-0.8); Neutrophils # 6.9 10*3/uL (1.4-7.4); Neutrophils % 78.9 % (38.7-73.9); Platelet Count 171 T/CUMM (130-400); Red Blood Count 4.28 MC/CUMM (3.8-5.5); Red Cell Distribution Width 17.1 % (9.3-17.3); White Blood Count 8.8 T/CUMM (4-12)
[2018-09-01 04:44] LABS: Albumin 2.4 G/DL (3.4-5.0); Bilirubin,Total 1.3 MG/DL (0.2-1.0); Calcium 8.5 MG/DL (8.5-10.1); Osmolality,Calculated 278.4 MOS/KG (273-304); Potassium 4.3 MMOL/L (3.5-5.1); Total Protein 5.4 G/DL (6.4-8.3)
[2018-09-01 04:50] LABS: Albumin 2.3 G/DL (3.4-5.0); Bilirubin,Direct 0.39 MG/DL (0.0-0.20); Bilirubin,Indirect 1.3 MG/DL (0.0-1.0); Bilirubin,Total 1.7 MG/DL (0.2-1.0); Total Protein 5.4 G/DL (6.4-8.3)
[2018-09-01 08:42] LABS: Apearance,Urine CLOUDY (Clear); Bilirubin,Urine Negative (Negative); Blood, Urine Small mg/dL (Negative); Glucose,Urine (UA) Negative (Negative); Ketones,Urine 5 mg/dL (Negative); Nitrite,Urine Negative (Negative); Protein,Urine 100 MG/DL; RBC,Urine 10 /HPF (0-4); Urine Color Amber (Yellow); Urine Specific Gravity 1.011 (1.001-1.035); WBC,Urine 580 /HPF (0-6)
[2018-09-01] MEDS: ASPIRIN EC 81 MG TABLET PO SCH (09:21)
[2018-09-01] MEDS: PANTOPRAZOLE 40 MG TABLET PO SCH (09:22)
[2018-09-01] MEDS: ENOXAPARIN 30 MG/0.3 ML SYRINGE SUBCUT SCH (09:22)
[2018-09-01] MEDS: cefTRIAXone 1,000 MG in SYRINGE 1 EACH IV SCH (09:22)
[2018-09-01] MEDS: TICAGRELOR 90 MG TABLET PO SCH ×2 (09:22→20:59)
[2018-09-01 10:58] LABS: Free T4 (Free Thyroxine) 1.28 NG/DL (0.76-1.46)
[2018-09-01] MEDS: ZINC OXIDE PASTE 113 GM TUBE TOP SCH (15:17)
[2018-09-01] MEDS: PHENAZOPYRIDINE 95 MG TABLET PO SCH ×2 (15:18→18:18)
[2018-09-01] MEDS: FUROSEMIDE 40 MG/4 ML VIAL IV SCH (15:18)
[2018-09-01] MEDS: METOPROLOL TARTRATE 25 MG TABLET PO SCH (20:53)
[2018-09-02 05:54] LABS: Basophils # 0.1 10*3/uL (0.0-0.2); Basophils % 0.5 % (0.0-0.8); Eosinophils # 0.2 10*3/uL (0.0-0.87); Eosinophils % 2.3 % (0.00-10.9); Hematocrit 47.5 VOL% (42.0-52.0); Hemoglobin 14.9 GM/DL (14.0-18.0); Immature Granulocytes % 0.6 %; Immature Granulocytes Absolute 0.06 #; Lymphocytes # 1.3 10*3/uL (1.4-4.0); Lymphocytes % 13.5 % (21.2-54.2); Mean Corpuscular HGB Conc 31.4 GM/DL (32-36); Mean Corpuscular Hemoglobin 31 PG (27-34); Mean Corpuscular Volume 97.1 FL (87-102); Mean Platelet Volume 10.8 FL (9.6-12.0); Monocytes # 0.8 10*3/uL (0.11-0.8); Monocytes % 8.3 % (1.7-12.7); Neutrophils # 7.1 10*3/uL (1.4-7.4); Neutrophils % 74.8 % (38.7-73.9); Platelet Count 216 T/CUMM (130-400); Red Blood Count 4.89 MC/CUMM (3.8-5.5); Red Cell Distribution Width 17.4 % (9.3-17.3); White Blood Count 9.5 T/CUMM (4-12)
[2018-09-02 06:10] LABS: Calcium 9.3 MG/DL (8.5-10.1); Osmolality,Calculated 276.5 MOS/KG (273-304); Potassium 4.3 MMOL/L (3.5-5.1)
[2018-09-02 06:12] LABS: Calcium 9.4 MG/DL (8.5-10.1); Osmolality,Calculated 274.7 MOS/KG (273-304); Potassium 4.4 MMOL/L (3.5-5.1)
[2018-09-02] MEDS: ZINC OXIDE PASTE 113 GM TUBE TOP SCH ×3 (07:23→21:21)
[2018-09-02] MEDS: LEVOTHYROXINE 50 MCG TABLET PO SCH (07:28)
[2018-09-02] MEDS: METOPROLOL TARTRATE 25 MG TABLET PO SCH (10:04)
[2018-09-02] MEDS: ASPIRIN EC 81 MG TABLET PO SCH (10:04)
[2018-09-02] MEDS: PANTOPRAZOLE 40 MG TABLET PO SCH (10:08)
[2018-09-02] MEDS: PHENAZOPYRIDINE 95 MG TABLET PO SCH ×3 (10:08→17:58)
[2018-09-02] MEDS: ENOXAPARIN 30 MG/0.3 ML SYRINGE SUBCUT SCH (10:08)
[2018-09-02] MEDS: TICAGRELOR 90 MG TABLET PO SCH ×2 (10:08→21:20)
[2018-09-02] MEDS: cefTRIAXone 1,000 MG in SYRINGE 1 EACH IV SCH (10:20)
[2018-09-02] MEDS: FUROSEMIDE 40 MG/4 ML VIAL IV SCH ×2 (10:24→17:56)
[2018-09-02] MEDS: AZITHROMYCIN 250 MG TABLET PO SCH (17:58)
[2018-09-02] MEDS: ROSUVASTATIN 20 MG TABLET PO SCH (21:20)
[2018-09-03 05:09] LABS: Basophils % 0.6 % (0.0-0.8); Calcium 8.5 MG/DL (8.5-10.1); Eosinophils # 0.2 10*3/uL (0.0-0.87); Eosinophils % 3.1 % (0.00-10.9); Hematocrit 41.6 VOL% (42.0-52.0); Hemoglobin 13.2 GM/DL (14.0-18.0); Immature Granulocytes % 0.5 %; Immature Granulocytes Absolute 0.03 #; Lymphocytes # 1.1 10*3/uL (1.4-4.0); Lymphocytes % 16.9 % (21.2-54.2); Mean Corpuscular HGB Conc 31.7 GM/DL (32-36); Mean Corpuscular Hemoglobin 30 PG (27-34); Mean Corpuscular Volume 95.2 FL (87-102); Mean Platelet Volume 10.9 FL (9.6-12.0); Monocytes # 0.7 10*3/uL (0.11-0.8); Monocytes % 10.3 % (1.7-12.7); Neutrophils # 4.4 10*3/uL (1.4-7.4); Neutrophils % 68.6 % (38.7-73.9); Osmolality,Calculated 281.3 MOS/KG (273-304); Platelet Count 193 T/CUMM (130-400); Potassium 3.6 MMOL/L (3.5-5.1); Red Blood Count 4.37 MC/CUMM (3.8-5.5); Red Cell Distribution Width 16.6 % (9.3-17.3); White Blood Count 6.4 T/CUMM (4-12)
[2018-09-03] MEDS: LEVOTHYROXINE 50 MCG TABLET PO SCH (06:55)
[2018-09-03] MEDS: FUROSEMIDE 40 MG/4 ML VIAL IV SCH (08:58)
[2018-09-03] MEDS: PHENAZOPYRIDINE 95 MG TABLET PO SCH ×3 (08:59→16:25)
[2018-09-03] MEDS: cefTRIAXone 1,000 MG in SYRINGE 1 EACH IV SCH (08:59)
[2018-09-03] MEDS: ASPIRIN EC 81 MG TABLET PO SCH (09:00)
[2018-09-03] MEDS: TICAGRELOR 90 MG TABLET PO SCH ×2 (09:00→21:30)
[2018-09-03] MEDS: ENOXAPARIN 30 MG/0.3 ML SYRINGE SUBCUT SCH (09:00)
[2018-09-03] MEDS: PANTOPRAZOLE 40 MG TABLET PO SCH (09:00)
[2018-09-03] MEDS: AZITHROMYCIN 250 MG TABLET PO SCH (09:00)
[2018-09-03] MEDS: ZINC OXIDE PASTE 113 GM TUBE TOP SCH ×2 (09:01→21:35)
[2018-09-03] MEDS: CARVEDILOL 3.125 MG TABLET PO SCH ×2 (12:15→21:30)
[2018-09-03] MEDS: POTASSIUM CHLORIDE 20 MEQ TABLET PO SCH (12:16)
[2018-09-03] MEDS ORDERED: FUROSEMIDE 40 MG/5 ML UDCUP PO SCH (16:00)
[2018-09-03] MEDS: FUROSEMIDE 40 MG TABLET PO SCH (16:25)
[2018-09-03] MEDS: ROSUVASTATIN 20 MG TABLET PO SCH (21:30)
[2018-09-04 04:57] LABS: Basophils % 0.8 % (0.0-0.8); Eosinophils # 0.1 10*3/uL (0.0-0.87); Eosinophils % 2.7 % (0.00-10.9); Hematocrit 41.1 VOL% (42.0-52.0); Hemoglobin 12.9 GM/DL (14.0-18.0); Immature Granulocytes % 0.2 %; Immature Granulocytes Absolute 0.01 #; Lymphocytes % 21.2 % (21.2-54.2); Mean Corpuscular HGB Conc 31.4 GM/DL (32-36); Mean Corpuscular Hemoglobin 30 PG (27-34); Mean Corpuscular Volume 95.6 FL (87-102); Mean Platelet Volume 10.7 FL (9.6-12.0); Monocytes # 0.5 10*3/uL (0.11-0.8); Monocytes % 10.3 % (1.7-12.7); Neutrophils # 3.1 10*3/uL (1.4-7.4); Neutrophils % 64.8 % (38.7-73.9); Platelet Count 207 T/CUMM (130-400); Red Cell Distribution Width 16.6 % (9.3-17.3); White Blood Count 4.8 T/CUMM (4-12)
[2018-09-04 05:20] LABS: Calcium 8.4 MG/DL (8.5-10.1); Osmolality,Calculated 282.1 MOS/KG (273-304); Potassium 3.6 MMOL/L (3.5-5.1)
[2018-09-04] MEDS: LEVOTHYROXINE 50 MCG TABLET PO SCH (06:29)
[2018-09-04] MEDS: PHENAZOPYRIDINE 95 MG TABLET PO SCH ×2 (09:07→12:30)
[2018-09-04] MEDS: TICAGRELOR 90 MG TABLET PO SCH (09:07)
[2018-09-04] MEDS: CARVEDILOL 3.125 MG TABLET PO SCH (09:07)
[2018-09-04] MEDS: ASPIRIN EC 81 MG TABLET PO SCH (09:07)
[2018-09-04] MEDS: FUROSEMIDE 40 MG TABLET PO SCH (09:07)
[2018-09-04] MEDS: cefTRIAXone 1,000 MG in SYRINGE 1 EACH IV SCH (09:08)
[2018-09-04] MEDS: POTASSIUM CHLORIDE 20 MEQ TABLET PO SCH (09:08)
[2018-09-04] MEDS: AZITHROMYCIN 250 MG TABLET PO SCH (09:08)
[2018-09-04] MEDS: PANTOPRAZOLE 40 MG TABLET PO SCH (09:08)
[2018-09-04] MEDS: ENOXAPARIN 30 MG/0.3 ML SYRINGE SUBCUT SCH (09:09)
[2018-09-04 11:59] VITALS: BP 96/61
[2018-09-04] MEDS: ZINC OXIDE PASTE 113 GM TUBE TOP SCH (12:30)
== END 2018-09-04 13:12 | disposition home health service (06) | DRG 291 ==
LOC: EDUNIT# → EDBD → N.ED 00:06 → SUATTDRO 02:24 → N.EDINP 02:24 → N.CC 03:23 → N.TELEN 08-31 15:06
PROVIDERS: ADMIT Internal Medicine; ATTEND Internal Medicine